=== PATIENT | male | born 1990 | race Caucasian/White ===

== ENCOUNTER 2017-02-09 22:44 | Emergency (ER) | payer SELFPAY ==
[~2017-02-09] VITALS: Ht 175.3 cm; Wt 115.0 kg
[2017-02-10] MEDS ORDERED: IBUPROFEN 600MG TABLET PO ONE (05:00)
[2017-02-10] MEDS ORDERED: BACITRACIN ZINC OINT UDPKT TOP ONE (05:00)
[2017-02-10] MEDS ORDERED: LIDOCAINE HCL 1%/EPI 1:200,000 30 ML VIAL MC ONE (05:00)
[2017-02-10] MEDS ORDERED: TETANUS, DIPHTHERIA, PERTUSSIS VAC/PF 0.5ML (>7YR OLD) IM ONE (05:00)
[2017-02-10 06:30] VITALS: BP 134/89
== END 2017-02-10 06:52 | disposition home or self-care (01) ==
LOC: ER 22:45
DX: S01.01XA Laceration without foreign body of scalp, initial encounter (principal); S90.129A Contusion of unspecified lesser toe(s) without damage to nail, initial encounter; W10.9XXA Fall (on) (from) unspecified stairs and steps, initial encounter; Y93.89 Activity, other specified; Y99.8 Other external cause status; Y92.89 Other specified places as the place of occurrence of the external cause
CPT/HCPCS: 12001; 73630; 90471; 90715; 99284; X7700; Z7610